=== PATIENT | male | born 1975 | race Hispanic/Latino ===

== ENCOUNTER 2020-07-06 19:39 | Inpatient (IN) | payer OTHER ==
[~2020-07-06] VITALS: Ht 170.2 cm; Wt 101.6 kg
[2020-07-06] MEDS ORDERED: HYDROCODONE/ACETAMINOPHEN 10/325 MG TAB ONE (20:13)
[2020-07-06] MEDS ORDERED: CEFAZOLIN SODIUM 1 GM VIAL ONE (20:13)
[2020-07-06] MEDS ORDERED: SODIUM CHLORIDE 0.9% 50 ML IV ONE (20:15)
[2020-07-06 20:43] LABS: BASOPHILS % (AUTO) 0.6 % (0.0-5.0); EOSINOPHILS % (AUTO) 2.5 % (0.0-8.0); HEMATOCRIT 42.2 % (42-54); MEAN CORPUSCULAR HEMOGLOBIN 30.8 pg (27.0-33.0); MEAN CORPUSCULAR HGB CONC 35.1 g/dL (32.0-36.0); MEAN CORPUSCULAR VOLUME 87.9 fL (79-99); MONOCYTES % (AUTO) 8.6 % (3.0-13.0); PLATELET COUNT (AUTO) 193 K/uL (130-400); RED CELL DISTRIBUTION WIDTH 12.3 % (11.0-15.5); WHITE BLOOD COUNT (AUTO) 6.9 K/uL (4.8-10.8)
[2020-07-06 20:58] LABS: INR 1.03 (0.85-1.15)
[2020-07-06 20:59] LABS: BILIRUBIN,TOTAL 0.4 mg/dL (0.2-1.0); CREATININE 0.9 mg/dL (0.5-1.5); PARTIAL THROMBOPLASTIN TIME 24.2 SEC (26.3-35.5); TOTAL PROTEIN, SERUM 6.9 g/dL (6.0-8.3)
[2020-07-07] MEDS ORDERED: MORPHINE SULFATE 4 MG/1ML SYG IV PRN (02:00)
[2020-07-07] MEDS: CEFAZOLIN SODIUM 1 GM VIAL IVP SCH ×2 (02:00→18:00)
[2020-07-07] MEDS ORDERED: ONDANSETRON HCL 4 MG/2 ML VIAL IV PRN (02:00)
[2020-07-07] MEDS ORDERED: MORPHINE SULFATE 2 MG/ML 1ML SYG IV PRN (02:00)
[2020-07-07] MEDS ORDERED: ACETAMINOPHEN 325 MG TAB PO PRN ×2 (02:00)
[2020-07-07 05:04] LABS: BASOPHILS % (AUTO) 0.5 % (0.0-5.0); EOSINOPHILS % (AUTO) 2.7 % (0.0-8.0); HEMATOCRIT 41.6 % (42-54); LYMPHOCYTES % (AUTO) 45.2 % (21.0-51.0); MEAN CORPUSCULAR HGB CONC 34.1 g/dL (32.0-36.0); MEAN CORPUSCULAR VOLUME 87.9 fL (79-99); MONOCYTES % (AUTO) 8.3 % (3.0-13.0); NEUTROPHILS % (AUTO) 43.1 % (40.0-77.0); PLATELET COUNT (AUTO) 175 K/uL (130-400); RED BLOOD CELL COUNT(AUTO) 4.73 MIL/uL (4.50-6.20); RED CELL DISTRIBUTION WIDTH 12.2 % (11.0-15.5)
[2020-07-07 05:43] LABS: CREATININE 0.8 mg/dL (0.5-1.5); CRP QUANTITATIVE 3.6 mg/L (0.00-9.0); POTASSIUM 4.1 mmol/L (3.5-5.1)
[2020-07-07] MEDS ORDERED: CEFAZOLIN SODIUM 1 GM VIAL ONE ×3 (05:52→18:20)
[2020-07-07] MEDS ORDERED: SODIUM CHLORIDE 0.9% 50 ML IV ONE (05:54)
[2020-07-07] MEDS: METOPROLOL TARTRATE 25 MG TAB PO SCH (09:00)
[2020-07-07] MEDS: FAMOTIDINE/PF 20 MG/2 ML VIAL IV SCH (09:00)
[2020-07-07] MEDS ORDERED: CEFTRIAXONE SODIUM 1 GM ONE (10:11)
[2020-07-07] MEDS ORDERED: FAMOTIDINE/PF 20 MG/2 ML VIAL IV ONE (10:12)
[2020-07-07] MEDS ORDERED: SODIUM CHLORIDE 0.9% 100 ML IV ONE ×3 (10:12→18:20)
[2020-07-07] MEDS ORDERED: SODIUM CHLORIDE 0.9% 1000ML 1,000 ML IV ONE (12:07)
[2020-07-07] MEDS ORDERED: ACETAMINOPHEN EXTRA STRENGTH 500 MG TABLET ONE (17:39)
[2020-07-07 21:50] VITALS: BP 154/104
[2020-07-07 23:57] VITALS: BP 142/74
[2020-07-08] VITALS (23 sets, daily range): BP systolic 105–156; BP diastolic 57–95
[2020-07-08] MEDS ORDERED: ACETAMINOPHEN-CODEINE 300/30MG TAB PO PRN ×2 (00:15)
[2020-07-08] MEDS: FAMOTIDINE/PF 20 MG/2 ML VIAL IV SCH ×2 (00:29→09:17)
[2020-07-08] MEDS: METOPROLOL TARTRATE 25 MG TAB PO SCH ×2 (00:30→09:00)
[2020-07-08] MEDS: CEFAZOLIN SODIUM 1 GM VIAL IVP SCH ×3 (03:44→17:13)
[2020-07-08] MEDS ORDERED: CEFAZOLIN SODIUM 1 GM VIAL ONE (08:57)
[2020-07-08] MEDS ORDERED: MIDAZOLAM HCL 1 MG/ML 2ML VIAL ONE (09:21)
[2020-07-08] MEDS ORDERED: DEXAMETHASONE SOD PHOSPHATE 10MG/ML 1ML VIAL ONE (09:21)
[2020-07-08] MEDS ORDERED: LIDOCAINE PF 2% 5ML ABBOJECT ONE (09:21)
[2020-07-08] MEDS ORDERED: SUCCINYLCHOLINE 200MG/10ML SYR ONE (09:21)
[2020-07-08] MEDS ORDERED: PROPOFOL 10 MG/ML 20ML VIAL IV ONE (09:21)
[2020-07-08] MEDS ORDERED: ONDANSETRON HCL 4 MG/2 ML VIAL ONE ×2 (09:22→11:02)
[2020-07-08] MEDS ORDERED: MEPERIDINE-PF 25 MG/ML SYG ONE ×3 (09:22→11:21)
[2020-07-08] MEDS ORDERED: FENTANYL CITRATE PF 50 MCG/1 ML 2ML VIAL ONE ×2 (09:22→10:15)
[2020-07-08] MEDS ORDERED: KETOROLAC TROMETHAMINE 30MG/ML ONE (10:31)
== END 2020-07-08 19:50 | disposition home or self-care (01) | DRG 514 ==
LOC: EDH 19:39 → EDHIP 07-07 01:49 → 3CH 07-07 21:42
PROVIDERS: ADMIT Internal Medicine; ATTEND Internal Medicine
PROC: 0PHV34Z Insertion of Internal Fixation Device into Left Finger Phalanx, Percutaneous Approach (ICD-10-PCS; 2020-07-08)
PROC: 0XQR0ZZ Repair Left Middle Finger, Open Approach (ICD-10-PCS; 2020-07-08)
PROC: 0JCK0ZZ Extirpation of Matter from Left Hand Subcutaneous Tissue and Fascia, Open Approach (ICD-10-PCS; 2020-07-08)
PROC: 0HDQXZZ Extraction of Finger Nail, External Approach (ICD-10-PCS; principal; 2020-07-08 09:00)
PROC: 0JBK0ZZ Excision of Left Hand Subcutaneous Tissue and Fascia, Open Approach (ICD-10-PCS; 2020-07-08 09:00)
DX: S62.633B Displaced fracture of distal phalanx of left middle finger, initial encounter for open fracture (principal); S61.213A Laceration without foreign body of left middle finger without damage to nail, initial encounter; E66.9 Obesity, unspecified; I10 Essential (primary) hypertension; G89.29 Other chronic pain; F17.200 Nicotine dependence, unspecified, uncomplicated; Z20.822 Contact with and (suspected) exposure to COVID-19; Z98.1 Arthrodesis status; W31.2XXA Contact with powered woodworking and forming machines, initial encounter; Y93.89 Activity, other specified; Y92.098 Other place in other non-institutional residence as the place of occurrence of the external cause; Y99.8 Other external cause status; Z68.35 Body mass index [BMI] 35.0-35.9, adult
CPT/HCPCS: 36415; 71045; 73130; 80048; 80053; 84145; 84484; 85025; 85610; 85730; 86140; 87426; 93005; 99291; C1713; G0378; J0330; J0690; J0696; J1100; J1885; J2001; J2175; J2250; J2405; J2704; J3010; J3490; J7030; U0003